=== PATIENT | female | born 1980 | race Caucasian/White ===

== ENCOUNTER 2016-06-07 09:26 | Emergency (ER) | payer OTHER ==
[~2016-06-07] VITALS: Ht 160 cm; Wt 58.0 kg
[~2016-06-07 09:26] MED LIST: PRENTAB26 PO
[2016-06-07 09:29] VITALS: TEMP 36.8; Ht 160 cm; Wt 58.0 kg
[2016-06-07] MEDS ORDERED: PROPARACAINE HCL 0.5% OP SOLN 15 ML BTL ONE (10:02)
[2016-06-07 10:09] LABS: BASO % 0.3 %; BASO ABS # 0.02 K/uL (0-0.2); COMPLETE YES; EOS % 0.5 %; HEMATOCRIT 40.8 % (37-47); IG% 0.2 %; LYMPH % 16.3 %; MEAN CELL VOLUME 89.7 fL (80-100); MEAN CORPUSCULAR HEMOGLOBIN 32.3 pg (25-34); MEAN PLATELET VOLUME 9.7 fL (7.4-10.4); MONO % 5.4 %; NEUT % 77.3 %; PLATELET COUNT 301 K/uL (130-400); RED BLOOD COUNT 4.55 M/uL (4.2-5.4); WHITE BLOOD COUNT 6.12 K/uL (4.8-10.8)
[2016-06-07 10:23] LABS: ALT/SGPT 31 U/L (12-78); BLOOD UREA NITROGEN 30 mg/dl (7-18); BUN/CREATININE RATIO 35.4 (10-20); C-REACTIVE PROTEIN < 0.29 mg/dl (0-0.29); CALCIUM 9.4 mg/dl (8.5-10.1); CARBON DIOXIDE 25 mmol/L (21-32); CHLORIDE 104 mmol/L (98-107); CREATININE 0.84 mg/dl (0.60-1.20); GLUCOSE 99 mg/dl (70-99); MAGNESIUM 2.1 mg/dl (1.8-2.4); POTASSIUM 3.8 mmol/L (3.5-5.1); SODIUM 138 mmol/L (136-145)
[2016-06-07 10:25] LABS: INR 1.1 (0.9-1.1); PROTHROMBIN TIME (PATIENT) 11.4 SECONDS (9.0-12.0)
[2016-06-07 10:26] LABS: URINE APPEARANCE CLEAR (CLEAR); URINE BILIRUBIN NEG (NEG); URINE COLOR YELLOW; URINE NITRITE NEG (NEG); UROBILINOGEN NEG (NEG); ZZUR CULT IF INDIC CLEAN CATCH NO
[2016-06-07 10:27] LABS: MANUAL MICROSCOPIC REQUIRED? NO; REVIEW REQ? NO
[2016-06-07 10:31] LABS: ALB/GLOB RATIO 1.2 (0.9-2); ALKALINE PHOSPHATASE 67 U/L (45-117); AST/SGOT 26 U/L (15-37); CKMB/CK RATIO 1.1 (0-3.0)
[2016-06-07] MEDS ORDERED: LORAZEPAM 2 MG/ML 1 ML VIAL ONE (10:33)
[2016-06-07] MEDS ORDERED: LORAZEPAM INJ 0.5 MG in SYRINGE 0.25 ML IV STA (10:34)
[2016-06-07 11:08] LABS: LYME DISEASE AB IGG NEG (NEG); LYME DISEASE AB IGM NEG (NEG)
--- NOTE | 2016-06-07 11:42 | DIAGNOSTIC IMAGING REPORT ---
Brain MRA HISTORY: vision field loss TECHNIQUE: 3-D [id number] MRA of the brain was performed without contrast. COMPARISON STUDY: None. FINDINGS: Visualized intracranial internal carotid arteries, distal vertebral arteries, and basilar artery are widely patent. There is no significant stenosis, occlusion, or aneurysm seen within the bilateral ACAs, MCAs, or drilling rig operator. IMPRESSION: No significant stenosis, occlusion, or aneurysm within the [place]. Electronically signed by: Thaddeus Cox M.D. 06/07/2016 11:41 AM Dictated Date/Time: 06/07/2016 11:31 AM
--- NOTE | 2016-06-07 12:06 | DIAGNOSTIC IMAGING REPORT ---
MRI OF THE BRAIN WITHOUT AND WITH IV CONTRAST CLINICAL HISTORY: RIGHT eye peripheral vision loss COMPARISON STUDY: No previous studies for comparison. TECHNIQUE: MRI of the brain was performed from the vertex to the skull base utilizing various T1 and T2 weighted sequences. Following the IV administration of 6 mL of Gadavist contrast, additional enhanced images were obtained. FINDINGS: Sagittal T1, axial diffusion, proton density and T2 weighted axial, coronal FLAIR, and pre and post axial T1-weighted images were acquired. These were supplemented with post gadolinium coronal T1 weighted images. No intra or extra-axial mass lesions are visualized. Axial diffusion-weighted images reveal no evidence of acute or subacute infarction. There is no evidence of ventricular dilatation. Proton density T2-weighted and FLAIR images reveal no significant intraparenchymal signal abnormalities. There are no abnormal flow voids. There is no evidence of pathologic enhancement. IMPRESSION: Normal study. Electronically signed by: Ward Santiago M.D. 06/07/2016 12:05 PM Dictated Date/Time: 06/07/2016 12:03 PM
--- NOTE | 2016-06-07 12:11 | DIAGNOSTIC IMAGING REPORT ---
NECK MRA HISTORY: vision field loss TECHNIQUE: [id number] and gadolinium-enhanced MRA of the neck was performed both before and after the intravenous administration of contrast. All measurements were calculated based on NASCET criteria. COMPARISON STUDY: None. FINDINGS: The aortic arch and proximal great vessels are widely patent. There is no significant stenosis, occlusion, or dissection identified within the bilateral common carotid, internal carotid, or vertebral arteries. IMPRESSION: No significant stenosis, occlusion, or dissection identified within the carotid or vertebral arteries. Electronically signed by: Thaddeus Cox M.D. 06/07/2016 12:10 PM Dictated Date/Time: 06/07/2016 12:07 PM
[2016-06-07] MEDS ORDERED: GADAVIST IV PRN (12:15)
--- NOTE | 2016-06-07 12:47 | EMERGENCY ROOM VISIT NOTE ---
History First contact with patient: 09:34 Chief Complaint: EYE ASSESSMENT Stated Complaint: BLURRY VISION History of Present Illness The patient is a 36 year old female who presents to the Emergency Department by private vehicle for evaluation of her peripheral vision issues. 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 She reports this lasted for approximately 20 minutes. During this episode she felt lightheaded as well as nauseated. She did vomit and had an episode of diarrhea as well. The RIGHT eye did seem to resolve, however she did report that the peripheral vision loss then went to the LEFT eye where it has been persistent since. She did notice some waviness in her vision. In addition, she reported tingling to the bilateral hands. She is never experienced similar symptoms previously. She has no headache. She reports no blurry vision, double vision, slurred speech, facial droop, unilateral weakness/numbness, or neck pain/ stiffness. She reports no recent illnesses. She denies recent tick bites. The patient rates her current discomfort as 0/10. She is tried nothing for her symptoms to this point. She reports no history of migrainous headaches. She reports no family history of MS. She does report that she has occasionally felt numbness in her tongue on a few occasions over the last several months. This is not occurring at this point. She denies any recent drug or alcohol use. She does not utilize oral contraception. Review of Systems A complete 10-point Review of Systems was discussed with the patient, with pertinent positives and negatives listed in the History of Present Illness. All remaining Review of Systems questions can be considered negative unless otherwise specified. Social History Smoking Status: Never Smoker Smokeless Tobacco Use: No Alcohol Use: occasionally Drug Use: none Marital Status: Housing Status: lives with family Occupation Status: employed Current/Historical Medications No Active Prescriptions or Reported Meds Allergies Coded Allergies: No Known Allergies (Unverified , 06/07/16) Physical Exam Vital Signs Date Time Temp Pulse Resp B/P Pulse Ox O2 Delivery O2 Flow Rate FiO2 06/07/16 12:56 72 16 102/65 100 06/07/16 12:48 72 16 102/65 100 Room Air 06/07/16 09:29 36.8 77 16 133/82 100 Room Air Right Eye Acuity: 20/25 Left Eye Acuity: 20/20 Pain Rating (0-10): 0 Physical Exam VITAL SIGNS - Vital signs and nursing notes were reviewed. GENERAL - 36-year-old female appearing younger than her stated age who is in no acute distress. Communicates well with provider and answers questions appropriately. HEAD - Normocephalic, Atraumatic. No Bell's Sign or Raccoon's Eyes. No depressed skull fractures palpable. EYES - PERRL with EOMI bilaterally. Sclera anicteric. Palpebral conjunctiva pink and moist with no injection noted. EARS - No deformities of external structures noted on gross examination bilaterally. No pain elicited with palpation of the tragus bilaterally. External auditory canals without discharge or otorrhea. Tympanic membranes pearly elizondo without retraction or bulging. NOSE - Midline and without cyanosis. No epistaxis or purulent drainage noted. Septum midline without deviation or septal hematoma noted. MOUTH/OROPHARYNX - Without perioral cyanosis. Buccal mucosa pink and moist and without leukoplakia. Tongue midline with equal elevation of palate bilaterally. No tonsillar hypertrophy, erythema, or exudates noted. Good dentition noted. NECK - Neck with FROM. Supple to palpation. No lymphadenopathy noted. No nuchal rigidity. LUNGS - Chest wall symmetric without accessory muscle use, intercostals retractions, or central cyanosis. Normal vesicular breath sounds CTA B/L. No wheezes, rales, or rhonchi appreciated. CARDIAC - RRR with S1/S2. No murmur, rubs, or gallops appreciated. EXTREMITIES - No pretibial edema present. +3/5 radial and dorsalis pedis pulses palpated throughout. FROM with no tremors, fasciculations, or clonus noted on PROM throughout. +5/5 strength noted in UE/LE bilaterally. NEUROLOGIC - Cranial nerves II through XII grossly intact. Sensory intact to light touch throughout. Patellar reflexes +2/4. Patient able to perform rapid alternating movements appropriately. Negative Romberg and Pronator Drift. Negative [id number]. PSYCH - A&Ox3 and cooperates fully with examiner. Pt is very pleasant and interacts well with examiner. Medical Decision & Procedures ER Provider Diagnostic Interpretation: Radiological imaging and reports were reviewed by myself. Radiologist's Interpretation as follows: MRI OF THE BRAIN WITHOUT AND WITH IV CONTRAST CLINICAL HISTORY: RIGHT eye peripheral vision loss COMPARISON STUDY: No previous studies for comparison. TECHNIQUE: MRI of the brain was performed from the vertex to the skull base utilizing various T1 and T2 weighted sequences. Following the IV administration of 6 mL of Gadavist contrast, additional enhanced images were obtained. FINDINGS: Sagittal T1, axial diffusion, proton density and T2 weighted axial, coronal FLAIR, and pre and post axial T1-weighted images were acquired. These were supplemented with post gadolinium coronal T1 weighted images. No intra or extra-axial mass lesions are visualized. Axial diffusion-weighted images reveal no evidence of acute or subacute infarction. There is no evidence of ventricular dilatation. Proton density T2-weighted and FLAIR images reveal no significant intraparenchymal signal abnormalities. There are no abnormal flow voids. There is no evidence of pathologic enhancement. IMPRESSION: Normal study. NECK MRA HISTORY: vision field loss TECHNIQUE: Papz-gj-ketktv and gadolinium-enhanced MRA of the neck was performed both before and after the intravenous administration of contrast. All measurements were calculated based on NASCET criteria. COMPARISON STUDY: None. FINDINGS: The aortic arch and proximal great vessels are widely patent. There is no significant stenosis, occlusion, or dissection identified within the bilateral common carotid, internal carotid, or vertebral arteries. IMPRESSION: No significant stenosis, occlusion, or dissection identified within the carotid or vertebral arteries. Brain MRA HISTORY: vision field loss TECHNIQUE: 3-D [id number] MRA of the brain was performed without contrast. COMPARISON STUDY: None. FINDINGS: Visualized intracranial internal carotid arteries, distal vertebral arteries, and basilar artery are widely patent. There is no significant stenosis, occlusion, or aneurysm seen within the bilateral ACAs, MCAs, or cement mason highways and streets. IMPRESSION: No significant stenosis, occlusion, or aneurysm within the [place]. Laboratory Results 06/07/16 09:55 Red Blood Count 4.55, Mean Corpuscular Volume 89.7, Mean Corpuscular Hemoglobin 32.3, Mean Corpuscular Hemoglobin Concent 36.0, Mean Platelet Volume 9.7, Neutrophils (%) (Auto) 77.3, Lymphocytes (%) (Auto) 16.3, Monocytes (%) (Auto) 5.4, Eosinophils (%) (Auto) 0.5, Basophils (%) (Auto) 0.3, Neutrophils # (Auto) 4.73, Lymphocytes # (Auto) 1.00, Monocytes # (Auto) 0.33, Eosinophils # (Auto) 0.03, Basophils # (Auto) 0.02 3/8/17 09:55 Test 06/07/16 09:55 06/07/16 10:10 White Blood Count 6.12 K/uL (4.8-10.8) Red Blood Count 4.55 M/uL (4.2-5.4) Hemoglobin 14.7 g/dL (12.0-16.0) Hematocrit 40.8 % (37-47) Mean Corpuscular Volume 89.7 fL (80-100) Mean Corpuscular Hemoglobin 32.3 pg (25-34) Mean Corpuscular Hemoglobin Concent 36.0 g/dl (32-36) Platelet Count 301 K/uL (130-400) Mean Platelet Volume 9.7 fL (7.4-10.4) Neutrophils (%) (Auto) 77.3 % Lymphocytes (%) (Auto) 16.3 % Monocytes (%) (Auto) 5.4 % Eosinophils (%) (Auto) 0.5 % Basophils (%) (Auto) 0.3 % Neutrophils # (Auto) 4.73 K/uL (1.4-6.5) Lymphocytes # (Auto) 1.00 K/uL (1.2-3.4) Monocytes # (Auto) 0.33 K/uL (0.11-0.59) Eosinophils # (Auto) 0.03 K/uL (0-0.5) Basophils # (Auto) 0.02 K/uL (0-0.2) RDW Standard Deviation 40.4 fL (36.4-46.3) RDW Coefficient of Variation 12.4 % (11.5-14.5) Immature Granulocyte % (Auto) 0.2 % Immature Granulocyte # (Auto) 0.01 K/uL (0.00-0.02) Erythrocyte Sedimentation Rate 8 mm/hr (0-21) Prothrombin Time 11.4 SECONDS (9.0-12.0) Prothromb Time International Ratio 1.1 (0.9-1.1) Activated Partial Thromboplast Time 26.1 SECONDS (21.0-31.0) Partial Thromboplastin Ratio 1.0 Anion Gap 9.0 mmol/L (3-11) Est Creatinine Clear Calc Drug Dose 75.8 ml/min Estimated GFR () 102.9 Estimated GFR (Non- 88.8 BUN/Creatinine Ratio 35.4 (10-20) Calcium Level 9.4 mg/dl (8.5-10.1) Magnesium Level 2.1 mg/dl (1.8-2.4) Total Bilirubin 0.7 mg/dl (0.2-1) Aspartate Amino Transf (AST/SGOT) 26 U/L (15-37) Alanine Aminotransferase (ALT/SGPT) 31 U/L (12-78) Alkaline Phosphatase 67 U/L (45-117) Total Creatine Kinase 174 U/L (26-192) Creatine Kinase MB 2.0 ng/ml (0.5-3.6) Creatine Kinase MB Ratio 1.1 (0-3.0) Troponin I < 0.015 ng/ml (0-0.045) C-Reactive Protein < 0.29 mg/dl (0-0.29) Total Protein 8.1 gm/dl (6.4-8.2) Albumin 4.4 gm/dl (3.4-5.0) Globulin 3.7 gm/dl (2.5-4.0) Albumin/Globulin Ratio 1.2 (0.9-2) Lipase 363 U/L (73-393) Thyroid Stimulating Hormone (TSH) 3.140 uIu/ml (0.300-4.500) Lyme Disease IgG Antibody NEG (NEG) Lyme Disease IgM Antibody NEG (NEG) Urine Color YELLOW Urine Appearance CLEAR (CLEAR) Urine pH 5.0 (4.5-7.5) Urine Specific [place] 1.000 (1.000-1.030) Urine Protein NEG (NEG) Urine Glucose (UA) NEG (NEG) Urine Ketones NEG (NEG) Urine Occult Blood NEG (NEG) Urine Nitrite NEG (NEG) Urine Bilirubin NEG (NEG) Urine Urobilinogen NEG (NEG) Urine Leukocyte Esterase NEG (NEG) Urine Test NEG (NEG) Medications Administered Medications (Trade) Dose Ordered Sig/Alonzo Route Start Time Stop Time Status Last Admin Dose Admin Lorazepam/Syringe (Ativan Inj/ Syringe) 0.5 ml @ 0.5 mls/min NOW STAT IV 06/07/16 10:34 06/07/16 10:35 DC 06/07/16 10:40 0.5 MLS/MIN Procedure Slit Lamp Examination was performed of the bilateral eye(s). Alcaine drops were applied to the affected eye(s) for proper anesthetization. The patient's face was comfortably rested on the chin guard of the slit lamp apparatus. The lights were dimmed and the affected eye(s) were thoroughly examined under microscopy using the regular light. Close examination revealed no foreign bodies, excoriations, hyphema, or hypopyon. Patient tolerated the procedure well and no complications were met. An Automated Tonometer was utilized to obtain bilateral orbital pressures. The pressures in the LEFT eye were found to be 11, 11, 11, and 10. The pressures in the RIGHT eye were found to be 15, 15, 15, and 11. Patient tolerated the procedure well and no complications were met. ECG Indication: other Rate (beats per minute): 69 Rhythm: normal sinus Findings: no acute ischemic change, prolonged QT, no ectopy Comparison ECG Date: no prior available ED Course Patient was seen and evaluated by myself. Labs were drawn, saline lock in place. Patient declines anything for pain at this time. Case was discussed with my attending physician who agrees with diagnostic approach and treatment plan. EKG was obtained. I did discuss the case with Dr. Smith of neurology. He agrees with imaging modalities. MRI and MRAs were obtained. Patient was premedicated with 0.5 mg Ativan intravenously prior to MRI. Laboratory results demonstrate no acute leukocytosis, worrisome anemia, or bandemia. The patient has no significant electrolyte abnormalities. ESR and CRP are not elevated. Troponin and cardiac enzymes were negative. TSH suggests euthyroid state. Lyme titer was negative. Urinalysis is unremarkable. Urine was negative. MRI results above. I made a tonometry and slit-lamp exam which were performed. The patient did develop a headache while in the emergency department which completely resolved after MRI. Imaging studies were reviewed with Dr. Smith who agrees with diagnostic approach and treatment plan. He does not suggest treatment at this point. The patient was thoroughly educated on laboratory results and imaging studies today. She was instructed to follow- up with her primary care provider or neurology from today's visit. She was educated on worrisome symptoms for return visit to the emergency department. Patient discharged home afebrile and in good condition. Medical Decision Given the patient's presentation and stated complaints, I did elect to perform the above-mentioned workup. The patient presents today with complaints of peripheral vision loss. This is not bitemporal in nature. She did have what sounds like scintillating scotoma initially. Eventually, she did develop a headache. Regardless, the above-mentioned diagnostic workup was admitted for rule out of possible worsening conditions including intracranial abnormality, TIA, CVA, MS, amongst others. The patient became completely asymptomatic throughout her stay in the emergency department. Her imaging studies were otherwise unremarkable. The patient has likely experienced an ocular migraine. In consultation with neurology, it was not felt that the patient to be placed on any medications at this point. The patient will follow-up with her primary care provider or neurology from today's visit. She will return in the setting of any changing or worsening symptoms. Patient discharged home afebrile and in good condition. In the evaluation and treatment of this patient, the following differential diagnoses were considered: Migraine Headache, Intracranial Hemorrhage, Subdural Hematoma, Subarachnoid Hemorrhage, Cerebral Aneurysm, Temporal/Giant Cell Arteritis, Tension Headache, Meningitis, Encephalitis, or Hydrocephalus. Impression Primary Impression: Atypical migraine Additional Impression: Hemianopia of left eye Departure Information Dispostion Home / Self-Care Condition GOOD Prescriptions No Active Prescriptions or Reported Meds Referrals Perla Dixon M.D. (PCP) Jorge Smith M.D. (MEDICINE) Patient Instructions ED Headache Migraine, [facility] Additional Instructions You have been treated in the Emergency Department for a Likely Atypical Migrainous Headache. For pain control, you can use the following zwak-lum-jwgrrmi medicines (if >12 yo): - Regular strength (325mg/tab) Tylenol (acetaminophen) 2 tabs every 4-6 hours as needed. Do not exceed 12 tablets in a 24 hour period. Avoid taking more than 4 grams (4000 mg) of Tylenol per day. This includes any other sources of acetaminophen you may take on a regular basis. - Regular strength (200 mg/tab) Advil (ibuprofen) 1-2 tabs every 4-6 hours as needed. Do not exceed a dose of 3200 mg per day. You should relax in a quiet, dark place for the rest of the day. Avoid any possible triggers including: cigarette smoke, caffeine, nicotine, chocolate, wine, beer, loud noises or music, or bright lights. You should schedule a follow-up appointment in 2-3 days with your Primary Care Provider or established Neurologist for further evaluation and treatment of your Headache. Return to the Emergency Department if your current symptoms worsen despite treatment course outlined above, or if you develop any of the following symptoms : intractable pain despite aforementioned treatment course, visual disturbances , loss of vision, unilateral weakness or facial drooping, slurring of speech, loss of coordination, or loss of consciousness. Problem Qualifiers
[2016-06-07 12:56] VITALS: BP 102/65; PULSE 72; O2SAT 100
== END 2016-06-07 12:57 | disposition home or self-care (01) ==
LOC: C.EDB 09:29
DX: G43.909 Migraine, unspecified, not intractable, without status migrainosus (principal); H53.47 Heteronymous bilateral field defects

== ENCOUNTER → 2016-07-27 | Outpatient (CLI) | payer OTHER ==
--- NOTE | 2016-07-27 16:52 | MAMMOGRAPHY REPORT ---
BILATERAL DIGITAL DIAGNOSTIC MAMMOGRAM TOMOSYNTHESIS WITH CAD AND TARGETED RIGHT ULTRASOUND: 07/28/19 17 CLINICAL HISTORY: The patient reports tenderness/discomfort in the right breast, predominantly behin d the right nipple, approximately 4 months. She notices the pain predominantly before her period, a nd the symptoms improve after period. She also notes an intermittent right breast lump which become s smaller after her period. She denies any nipple discharge or other complaints. TECHNIQUE: Breast tomosynthesis in addition to standard 2D mammography was performed. Current study was also evaluated with a Computer Aided Detection (CAD) system. Bilateral CC and MLO 2-D and rosas synthesis images were obtained. COMPARISON: No prior exams were available for comparison. BREAST COMPOSITION: The tissue of both breasts is heterogeneously dense, which may obscure small ma sses. FINDINGS: There is a small oval circumscribed 4 mm mass seen within the right subareolar breast on the cc view, thought to project superiorly based on the tomosynthesis localizer bar. The remainder of both breasts demonstrate no suspicious masses, calcifications, or areas of architectural distorti on. Morphologically normal intramammary lymph nodes are seen within bilateral upper outer quadrants . Targeted ultrasound was performed of the right subareolar and 12:00 breast. No suspicious masses or other suspicious sonographic abnormalities are evident. In the right breast at 12:00 peria[address] r egion, there is an oval circumscribed anechoic mass with a thin internal septation, measuring 6 x 2 x 5 mm, consistent with a benign cyst. In the right breast at 10:00 periareolar region, there is an oval anechoic benign simple cyst which measures 7 x 8 mm. Targeted ultrasound was performed of the area of possible lump pointed out by the patient, in the right breast at 12:00 superior subareolar region, which shows sonographically normal tissue without evidence of a mass. IMPRESSION: ACR BI-RADS CATEGORY 2: BENIGN, TARGETED ULTRASOUND ACR BI-RADS CATEGORY 2: BENIGN No suspicious mammographic or sonographic abnormality to explain right breast tenderness/discomfort and lump. There is no mammographic or targeted sonographic evidence of malignancy. Recommend clini john follow-up for right breast symptoms, and recommend routine bilateral screening mammograms starti ng at the age of 40 unless otherwise clinically indicated. The patient has been verbally notified of the results. Approximately 10% of breast cancers are not detected with mammography. A negative mammographic repor t should not delay biopsy if a clinically suggestive mass is present. Alyson Flores M.D. ah/:07/27/2016 15:02:33 Patient Financial Rep: Antonia RAY(Lloyd)(Sourav), [facility] letter sent: Normal 1/2 BI-RADS Code: ACR BI-RADS Category 2: Benign Ultrasound BI-RADS: ACR BI-RADS Category 2: Benign
== END | disposition home or self-care (01) ==
LOC: C.MAMM 14:15
PROVIDERS: ATTEND Obstetrics & Gynecology
DX: N64.9 Disorder of breast, unspecified (principal)